=== PATIENT | female | born 1970 | race African-American/Black ===

== ENCOUNTER 2017-05-21 12:37 | Emergency (ER) | payer OTHER ==
[2017-05-21 12:41] VITALS: BP 148/91; PULSE 95; TEMP 98.3; BMI 35.6
[2017-05-21] MEDS ORDERED: KETOROLAC TROMETHAMINE 60 MG/2 ML VIAL IM ONE (13:41)
[2017-05-21] MEDS ORDERED: KETOROLAC TROMETHAMINE 60 MG/2 ML VIAL ONE (13:46)
--- NOTE | 2017-05-21 13:47 | PDOC ---
History of Present Illness - General Chief Complaint: Pain Stated Complaint: SWOLLEN RT ARM, PAIN Time Seen by Provider: 05/21/17 13:41 History Source: Patient Exam Limitations: No Limitations - History of Present Illness Initial Comments: 05/21/17 13:42 Postoperative rotator cuff surgery in November per Dr. 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 States return to work full duty a month ago. While performing her duties today at work was assisting a patient in the chair when the patient twisted causing her to pull her right shoulder. States since that time has had worsened pain, noted swelling to her shoulder and radiating pain to her elbow. Denies neck or back injury. States has some mild sensory changes to her right hand. Has an appointment to see Dr. Yusuf today at 4 PM was concerned about increasing pain. Occurred: reports: just prior to arrival, this morning Severity: reports: mild, moderate Pain Location: reports: upper extremity (right shoulder ) Modifying Factors: improves with: cold therapy Associated Symptoms (Fall): denies symptoms Past History - Travel Traveled outside of the country in the last 30 days: No Close contact w/someone who was outside of country & ill: No - Past Medical History Allergies/Adverse Reactions: Allergies Allergy/AdvReac Type Severity Reaction Status Date / Time ciprofloxacin [From Cipro] Allergy Verified 05/21/17 12:41 ciprofloxacin HCl Allergy Verified 05/21/17 12:41 [From Cipro] Home Medications: Ambulatory Orders Amlodipine/Atorvastatin [Amlodipine-Atorvast 10-20 mg] 1 each PO DAILY 05/21/17 - Psycho/Social/Smoking Cessation Hx Suicidal Ideation: No Smoking History: Never smoked Information on smoking cessation initiated: No Hx Alcohol Use: No Drug/Substance Use Hx: No Substance Use Type: None Trauma Specific PMHX - Complaint Specific PMHX Back Injury: No Neck Injury: No Review of Systems - Review of Systems Able to Perform ROS?: Yes Is the patient limited French proficient: Yes Constitutional: Yes: See HPI. No: Symptoms Reported, Loss of Appetite, Malaise HEENTM: No: Symptoms Reported Respiratory: No: Symptoms reported Musculoskeletal: Yes: Symptoms Reported, See HPI, Joint Swelling (right shoulder ), Muscle Pain, Joint Stiffness All Other Systems: Reviewed and Negative *Physical Exam - Vital Signs Last Vital Signs Temp Pulse Resp BP Pulse Ox 98.3 F 95 H 18 148/91 100 05/21/17 12:39 05/21/17 12:39 05/21/17 12:39 05/21/17 12:39 05/21/17 12:39 - Physical Exam General Appearance: Yes: Nourished, Appropriately Dressed, Apparent Distress HEENT: positive: MARJORIE, Normal ENT Inspection, TMs Normal, Pharynx Normal Neck: positive: Tender Respiratory/Chest: positive: Lungs Clear Gastrointestinal/Abdominal: negative: Tender Musculoskeletal: positive: Decreased Range of Motion. negative: Normal Inspection (swelling ), Vertebral Tenderness Extremity: positive: Normal Capillary Refill, Tender, Swelling (with fullness to shoulder capsule ). 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 Patient has scheduled appointment today with Dr. Yusuf, surgeon for further evaluation. We'll provide Toradol for pain relief *DC/Admit/Observation/Transfer Diagnosis at time of Disposition: Right shoulder strain Qualifiers: Encounter type: initial encounter Qualified Code(s): S46.911A - Strain of unspecified muscle, fascia and tendon at shoulder and upper arm level, right arm , initial encounter - Discharge Dispostion Disposition: HOME Condition at time of disposition: Stable Admit: No - Referrals Referrals: Elvi Watson MD [Primary Care Provider] - Serge Yusuf [Non Staff, Medical] - - Patient Instructions Additional Instructions: Rest, ice to area on and off for 15 minutes 4-6 times a day Avoid heavy lifting or exercise until pain and swelling is resolved or until further directed Keep area highly elevated to reduce swelling Use splints/Merrick wrap as directed Followup with orthopedist today as scheduled if significantly improved may wait one week for followup with orthopedist May use ibuprofen 2-200 mg tablets every 6 hours as needed for pain - Post Discharge Activity Work/School Note: Back to Work
== END 2017-05-21 13:58 | disposition home or self-care (01) ==
LOC: JERFT 12:37
PROC: 2W3CX1Z Immobilization of Right Lower Arm using Splint (ICD-10-PCS; principal; 2017-05-21)
PROC: 3E0233Z Introduction of Anti-inflammatory into Muscle, Percutaneous Approach (ICD-10-PCS; 2017-05-21)
DX: S46.911A Strain of unspecified muscle, fascia and tendon at shoulder and upper arm level, right arm, initial encounter (principal); Z88.1 Allergy status to other antibiotic agents; X58.XXXA Exposure to other specified factors, initial encounter; Y93.F2 Activity, caregiving, lifting; Y92.129 Unspecified place in nursing home as the place of occurrence of the external cause
CPT/HCPCS: 99281-25